=== PATIENT | male | born 1945 | race Caucasian/White ===

== ENCOUNTER → 2019-02-04 | Outpatient (CLI) | payer MEDICARE, OTHER ==
[~2019-02-04] MED LIST: ACET325 PO; ALPR.25; ALPR.25 PO; ALPR1 PO; ATOR10 PO; ATOR40TA PO; Acetaminophen325 M1 PO; Aldactone25 MG PO; BUSP5 PO; CARV6.25 PO; CEFD300 PO; CEFTIN PO; CLIN300 PO; CLOP75 PO; DIAZ2 PO; DOCU100 PO; FLUO10 PO; FURO20 PO; GABA300; GUAI600T33 PO; HYDACE5 PO; LEVFLO500 PO; LISI5 PO; METF500 PO; METH10 PO; METO25 PO; METO50 PO; MORP15ER PO; MORP30 PO; MORP30ER PO; MORPHINE SULFAT10 MG; Morphine Sulfat15 MG PO; OXYC15ER PO; SERT50; SERT50 PO; TORSE20 PO; WARF2.5 PO; WARF3 PO; XARELTO20 MG PO
== END | disposition home or self-care (01) ==
LOC: LAB SHORT 18:55 → LAB EV 18:55
DX: S81.801A Unspecified open wound, right lower leg, initial encounter (principal)
CPT/HCPCS: 87070; 87075; 87077; 87186; 87205

== ENCOUNTER 2019-02-09 17:21 | Inpatient (IN) | payer MEDICARE, OTHER ==
[~2019-02-09] VITALS: Ht 177.8 cm; Wt 121.9 kg
[~2019-02-09 17:21] MED LIST changes: -ALPR.25 PO; -Acetaminophen325 M1 PO; -BUSP5 PO; -CEFD300 PO; -CLIN300 PO; -CLOP75 PO
[2019-02-09 18:09] LABS: BASOPHILS ABSOLUTE AUTO 0.03 K/mm3 (0.00-0.23); BASOPHILS PERCENT AUTO 1 % (0-2); EOSINOPHILS ABSOLUTE AUTO 0.07 K/mm3 (0.00-0.68); EOSINOPHILS PERCENT AUTO 1 % (0-6); Hematocrit 45.4 % (37.0-53.0); Hemoglobin 14.4 g/dL (13.5-17.5); IMMATURE GRAN ABSOLUTE AUTO 0.04 K/mm3 (0.00-0.10); IMMATURE GRAN PERCENT AUTO 1 % (0-1); LYMPHOCYTES ABSOLUTE AUTO 0.53 K/mm3 (0.84-5.20); LYMPHOCYTES PERCENT AUTO 9 % (21-46); MONOCYTES ABSOLUTE AUTO 0.43 K/mm3 (0.16-1.47); MONOCYTES PERCENT AUTO 7 % (4-13); Mean Corpuscular HGB 30.1 pg (26.0-34.0); Mean Corpuscular HGB Conc 31.7 g/dL (31.5-36.5); Mean Corpuscular Volume 95 fL (80-100); Mean Platelet Volume 11.1 fL (9.1-12.4); NEUTROPHILS ABSOLUTE AUTO 4.83 K/mm3 (1.96-9.15); NEUTROPHILS PERCENT AUTO 81 % (41-73); Platelet Count 143 K/mm3 (150-400); RDW Coefficient Variation 15.7 % (11.7-14.2); RDW Standard Deviation 55.2 fL (35.1-46.3); Red Blood Cell Count 4.79 M/mm3 (4.30-5.90); White Blood Cell Count 5.93 K/mm3 (4.00-11.30)
[2019-02-09 18:47] LABS: Prothrombin Time Results 44.6 Sec (9.7-11.5)
[2019-02-09 18:53] LABS: International Normalized Ratio 4.86
[2019-02-09 19:13] LABS: Troponin I 0.028 ng/mL (0.000-0.040)
[2019-02-09 19:21] LABS: Albumin, Blood 3.4 g/dL (3.4-5.0); Albumin/Globulin Ratio 0.8 (0.8-1.8); Bilirubin, Total 0.3 mg/dL (0.1-1.0); Calcium, Blood 8.3 mg/dL (8.5-10.1); Potassium, Blood 5.2 mmol/L (3.5-5.5); Total Protein, Blood 7.4 g/dL (6.4-8.2)
[2019-02-09] MEDS ORDERED: BUSP5 PO (20:09)
[2019-02-09 20:28] LABS: Magnesium, Blood 2.8 mg/dL (1.6-2.4)
[2019-02-09 20:32] LABS: Thyroid Stimulating Hormone 1.49 uIU/mL (0.360-4.800)
[2019-02-09 20:51] LABS: Base Excess Venous -4.7 mmol/L; Bicarbonate Venous 19.5 mmol/L (24.0-30.0); PCO2 Venous 51.4 mmHg (38-42); PO2 Venous 38.3 mmHg (38-42); pH Blood Venous 7.25 (7.34-7.37)
[2019-02-09 21:23] LABS: Source, Urine Peds U Bag
[2019-02-09 21:26] LABS: Bilirubin, Urine Neg (Neg); Blood, Urine Neg (Neg); Glucose Qualitative, Urine Neg (Neg); Ketones, Urine Neg (Neg); Leukocyte Esterase, Urine Neg (Neg); Nitrite, Urine Neg (Neg); Protein, Urine Neg (Neg); Urobilinogen, Urine NORM (Normal)
[2019-02-09 21:29] LABS: Appearance, Urine Clear (Clear); Color, Urine Yellow (P-Yellow)
--- NOTE | 2019-02-10 04:44 | NUR ---
SHIFT SUMMARY: 73 Y/O OBESE MALE RESTED COMFORTABLY IN BED ALL SHIFT. PT DENIES PAIN OR NAUSEA. PTS PLACED ON CONTACT ISOLATION (PAST HX MRSA). PT BILATERAL LOWER EXTREMITIES ARE RED AND WARM TO TOUCH, NO OPEN WOUNDS NOTED. PT IS DECONDITIONED AND HAD MUCH TROUBLE STANDING AT BEDSIDE TO REMOVE CLOTHES UPON INITIAL ARRIVAL INTO ROOM. PT DENIES NAUSEA, C/O CHRONIC BACK PAIN 01/12 WITH MS CONTIN 30MG PO GIVEN. PTS BED LOW POSITION, CALL LIGHT AT SIDE.
[2019-02-10 05:41] LABS: Bun/Creatinine Ratio 27.7 (12.0-20.0); Calcium, Blood 7.9 mg/dL (8.5-10.1); Creatinine, Blood 1.73 mg/dL (0.60-1.20); Potassium, Blood 5.4 mmol/L (3.5-5.5)
[2019-02-10 05:52] LABS: Prothrombin Time Results 42.9 Sec (9.7-11.5)
[2019-02-10 05:55] LABS: International Normalized Ratio 4.65
--- NOTE | 2019-02-10 06:17 | NUR ---
02/09/19 2230 PT ADMITTED TO 359 PER CART FROM ER. PT ORIENTED TO ROOM.
--- NOTE | 2019-02-10 15:29 | NUR ---
Spiritual care visit conducted. Patient welcomes visit and immediately shares the spiritual/emotional distress. We talk about lul, how he views God in suffering and about what inspires and encourages him. I encourage self-care, reinforce helpful attitudes and practices and provide prayer. Patient responds well and shows signs of restored lul. Patient invites me back anytime I am available.
--- NOTE | 2019-02-10 17:17 | NUR ---
SHIFT SUMMARY: PT IS A/O X 4 THIS SHIFT WITH C/O ONGOING CHRONIC PAIN THAT IS ALLEVIATED WITH CURRENT PAIN MED ORDERS. PT HAS BEEN RESTING IN BED THIS SHIFT AND USES THE URINAL TO VOID. PT CALLS FOR HELP WITH CALL LIGHT WHEN NEEDED.
--- NOTE | 2019-02-11 03:26 | NUR ---
CARDIOLOGY CONSULT CALLED IN. ANSWERING SERVICE NOT AVAILABLE AT THIS TIME. WILL PASS ON TO DAY SHIFT RN.
--- NOTE | 2019-02-11 03:28 | NUR ---
SHIFT SUMMARY PATIENT HAD NO ACUTE CHANGES OBSERVED THIS SHIFT. AXO X3 AND ONE PERSON ASSIST TO BSC. PIV REMAINS INTACT. VSS/AFEBRILE. IV ABX INFUSED. DENIES PAIN, SOB, AND N/V. NS INFUSING AT 75 mL/HR. COOPERATIVE WITH CARE. CALL LIGHT IN REACH. BED IN LOWEST POSITION. WILL CONTINUE TO MONITOR UNTIL DAY SHIFT NURSE ASSUMES CARE.
[2019-02-11 05:11] LABS: International Normalized Ratio 3.44; Prothrombin Time Results 32.6 Sec (9.7-11.5)
[2019-02-11 05:13] LABS: Albumin, Blood 3.1 g/dL (3.4-5.0); Anion Gap 7 mmol/L (6-16); Blood Urea Nitrogen 33 mg/dL (8-24); Bun/Creatinine Ratio 24.8 (12.0-20.0); CO2, Blood 23 mmol/L (21-32); Calcium, Blood 8.3 mg/dL (8.5-10.1); Chloride, Blood 108 mmol/L (98-108); Creatinine, Blood 1.33 mg/dL (0.60-1.20); Glomerular Filtration Rate 56 (60-); Glucose, Blood 93 mg/dL (70-99); Phosphorus, Blood 2.8 mg/dL (2.5-4.9); Potassium, Blood 5.6 mmol/L (3.5-5.5); Sodium, Blood 138 mmol/L (136-145)
--- NOTE | 2019-02-11 06:37 | NUR ---
PATIENT OUT TO IMAGING VIA BED.
--- NOTE | 2019-02-11 10:07 | NUR ---
PT CALLED NURSE TO ROOM C/O "NOT FEELING WELL" PT STATES HE FEELS SLIGHTLY SOB AND NAUSEOUS. RT NOTIFIED AND BREATHIG TX INITIATED. V/S OBTAINED AND B/P LOW WITH ELEVATED PULSE. DR FIERRO NOTIFIED AND GAVE ORDERS TO STOP IV FLUIDS AND PAUSE IV ABO AND HE WOULD BE UP TO ROUND ON PT. PT IS A/O TO BASELINE AND SITTING UP IN BED.
--- NOTE | 2019-02-11 10:34 | NUR ---
PT IS NOW RESTING COMFORTABLY IN BED AND DENIES ANY SOB OR NAUSEA. DENIES ANY DIZZINESS. PT BED LINENS WERE CHANGED AND PT WAS REPOSITIONED TO SIT UP IN BED.
--- NOTE | 2019-02-11 11:27 | NUR ---
PT CALLED THIS NURSE TO ROOM TO REPORT THAT HE "FEELS WEIRD" PT REPORTS MILD SOB. BP WNL WITH ELEVATED PULSE. CBG WNL. DR FIERRO NOTIFIED AND GAVE VERBAL ORDER TO START PT ON TELE AND CONTINUE TO MONITOR. PT IS RESTING IN BED, NURSING WILL CONTINUE TO MONITOR.
--- NOTE | 2019-02-11 13:07 | NUR ---
THIS NURSE SPOKE WITH DR FIERRO WHO GAVE ORDERS TO RE-START CLEOCIN IV ABO TO GIVE THE REMAINING DOSE AND MONITOR PT, CALL MD IF ANY CHANGES WITH PT OCCUR.
--- NOTE | 2019-02-11 13:27 | NUR ---
IV ABO RE-STARTED PER MD ORDER. THIS NURSE AT BEDSIDE AND PT HAS NO C/O ADVERSE REACTION. BP WNL, A FEBRILE, PULSE REMAINS ELEVATED IN THE MID 120'S. WILL CONTINUE TO MONITOR.
--- NOTE | 2019-02-11 14:01 | NUR ---
NOTIFIED DR FIERRO OF ELEVTAED PULSE AND RECEIVED ORDER FOR IV METOPROLOL X 1 DOSE AND MONITOR V/S.
--- NOTE | 2019-02-11 15:41 | NUR ---
PT CALLED THIS NURSE TO REPORT FEELING MILDLY SOB AND LIGHTHEADED. PT CONTINUES TO HAVE A-FIB WITH PULSE 108-110. DR FIERRO NOTIFIED AND GAVE VERBAL ORDERS TO GIVE THE 21:00 DOSE OF METOPROLOL NOW AND RE-CHECK V/S AND CALL WITH UPDATE IN APPROX 1 HOUR. CHARGE NURSE MADE AWARE OF ORDERS/CHANGES.
--- NOTE | 2019-02-11 16:25 | NUR ---
PRESCHOOL DISABILITY TEACHER REPORTS THAT PT IS STILL IN A-FIB WITH A RATE OF 108. THIS WAS REPORTED TO DR FIERRO WHO WANTS TO CONTINUE TO MONITOR AND IF ANY CHANGES CALL TO NOTIFY HIM. PT AWARE AND OK WITH CURRENT TX PLAN.
--- NOTE | 2019-02-11 16:42 | NUR ---
SHIFT SUMMARY: PT HAS BEEN A/O X 4 THIS SHIFT WITH C/O PAIN X 1 AND STATES THAT MORNING PAIN PILL WAS EFFECTIVE. PT HAS HAD ON AND OFF SOB AND DIZZINESS THROUGHOUT THIS SHIFT AND ORDERS HAVE BEEN IMPLEMENTED PER DR FIERRO. BP HAS BEEN STABLE AND HR HAS BEEN A -FIB WITH MOST RECENTLY AT 108. NURSE CONTINUES TO ROUND ON PT FREQUENTLY WELL BOOK SHELVER WITH V/S BEING CHECKED OFTEN. FRIEND/NEIGHBOR IS AT BEDSIDE. PT IS NOW RESTING AND STATED HE WOULD CALL IF NEEDED. NURSING WILL CONTINUE TO MONITOR AND NOTIFY ONCOMING SHIFT.
--- NOTE | 2019-02-11 17:26 | NUR ---
PT BP CONTINUES TO BE STABLE AND PULSE IS COMING DOWN AT 96 BPM. PT IS RESTING IS BED.
--- NOTE | 2019-02-11 23:21 | NUR ---
HEARD CRASH NOISE COME FROM ROOM. WHEN I ENTERED THE ROOM I WITNESSED THE PATIENT ON THE FLOOR. PATIENT WAS SAT UP ON FLOOR WITH 2 OTHER [facility] THEN A SLING WAS PLACED UNDER PATIENT AND A HOER LIFT WAS USED TO GET THE PATIENT BACK IN BED. PATIENT DENIED HITTING HIS HEAD AND DENIED ANY PAIN RELATED TO THE FALL. I DID NOT VISUALIZ ANY INJURIES. PATIENT STATED THAT HIS LEG GOT "TANGLED" UP AND HE FELL ONTO THE BEDSIDE TABLE FIRST AND BROKE HIS FALL TO THE FLOOR. PHYSICIAN CALLED AND INFORMED OF PATIENT FALL. NO NEW ORDERS GIVEN. BED ALARM PLACED ON AND PATIENT EDUCATED ABOUT USING THE CALL LIGHT AND STAFF BEING PRESENT WHEN HE IS OUT OF BED MOVING FORWARD. PATIENT RESTATED THE USE OF THE CALL LIGHT AND AGREED TO CALL STAFF BEFORE GETTING OUT OF BED.
[2019-02-12 05:01] LABS: Albumin, Blood 2.9 g/dL (3.4-5.0); Anion Gap 7 mmol/L (6-16); Blood Urea Nitrogen 27 mg/dL (8-24); Bun/Creatinine Ratio 19.9 (12.0-20.0); CO2, Blood 21 mmol/L (21-32); Calcium, Blood 8.5 mg/dL (8.5-10.1); Chloride, Blood 106 mmol/L (98-108); Creatinine, Blood 1.36 mg/dL (0.60-1.20); Glomerular Filtration Rate 55 (60-); Glucose, Blood 91 mg/dL (70-99); Phosphorus, Blood 3.1 mg/dL (2.5-4.9); Potassium, Blood 4.9 mmol/L (3.5-5.5); Sodium, Blood 134 mmol/L (136-145)
[2019-02-12 05:06] LABS: International Normalized Ratio 2.42; Prothrombin Time Results 23.7 Sec (9.7-11.5)
--- NOTE | 2019-02-12 06:22 | NUR ---
SHIFT SUMMARY PATIENT HAD MECHANICAL FALL (SEE NURSE NOTE). PATIENT HEART RATE DOWN TO 95 AFIB. PATIENT AWAKE MOST OF NIGHT WITH COMPLAINTS OF BEING ANXIOUS. MEDICATIONS GIVEN. PATIENT VERBALIZED UNDERSTANDING OF CALLING STAFF BEFORE GETTING OUT OF BED AND DEMONSTRATED UNDERSTANDING BY CALLING STAFF THE REST OF TH NIGHT. VSS. WILL CONTINUE TO MONITOR
--- NOTE | 2019-02-12 16:55 | NUR ---
SHIFT SUMMARY: PT A/O X 4 THIS SHIFT AND TIRED THIS AM STATING HE DIDNT SLEEP WELL. AFTER RESTING UNTIL BREAKFAST, PT REQUESTED TO BE REPOSITIONED AND A RECLINER CHAIR WAS BROUGHT IN AND PT WAS ASSISTED TO SIT IN RECLINER. FEET WERE ELEVTAED IN THE CHAIR AND UP ON PILLOWS REQUESTED BY LOOM REPAIRER. PT STATES HE FEELS MUCH BETTER TODAY. LOOM REPAIRER STATED HE ADJUSTED DOSE ON LOPRESSOR AND IT WAS GIVEN ORDERED AND V/S HAVE BEEN WNL WITH HEART RHYTHM STILL IN A - FIB BUT PT DENIES SYPMTOMS TODAY. PT HAS BEEN RESTING ON AND OFF IN [employer]. PT WORKED WITH ALL TH[facility] TODAY AND OT IS RECOMMNEDING SNF AFTER HIS STAY AT [facility]. PT IS RESTING IN HIS CHAIR AND ABLE TO MAKE HIS NEEDS KNOWN.
[2019-02-13 05:10] LABS: International Normalized Ratio 2.1; Prothrombin Time Results 20.8 Sec (9.7-11.5)
[2019-02-13 05:16] LABS: Albumin, Blood 3.1 g/dL (3.4-5.0); Anion Gap 5 mmol/L (6-16); Blood Urea Nitrogen 30 mg/dL (8-24); Bun/Creatinine Ratio 22.2 (12.0-20.0); CO2, Blood 24 mmol/L (21-32); Calcium, Blood 8.5 mg/dL (8.5-10.1); Chloride, Blood 105 mmol/L (98-108); Creatinine, Blood 1.35 mg/dL (0.60-1.20); Glomerular Filtration Rate 55 (60-); Glucose, Blood 92 mg/dL (70-99); Phosphorus, Blood 3.3 mg/dL (2.5-4.9); Potassium, Blood 5.1 mmol/L (3.5-5.5); Sodium, Blood 134 mmol/L (136-145)
--- NOTE | 2019-02-13 07:14 | NUR ---
SHIFT SUMMARY PT IS A 73 Y/O MALE, ADMITTED FOR AN JULIET WHICH HAS SINCE BEEN RESOLVED. HE IS A 1PA TO THE BS. PT DENIED ANY COMPLAINTS OF PAIN, NAUSEA OR SOB. PER THE COMMUNICATIONS SYSTEMS ENGINEER, THE PT REMAINED IN AFIB, THOUGH HIS RATE WAS CONTROLLED IN THE 70-80S. VITALS REMAINED STABLE. NO OTHER ACUTE CHANGES IN PT CONDITION NOTED. REPORT GIVEN TO ONCOMING RN.
--- NOTE | 2019-02-13 09:00 | NUR ---
PT PLEASANT COOP A.O. SOME GENERALIZE PN, 4 OF 10, WOULD LIKE TO BE AT /. H/R IS IRREGLAR, NO MURMER NOTED. EGG PASTEURIZER STRONG. IS [place]. NEED TO LOOK AT PT WHEN TALK. LUNGS CLEAR, DIM IN BASES. ON R/A. BT XR LAST BM WAS YEST. NORMAL. VOIDS PER 1 ASST AT BSC. BED IN LOW POSITION, ACLL LITE IN REACH, CALLS APPROP
--- NOTE | 2019-02-13 10:29 | NUR ---
PT STATES SOME ANX. FEELS OTHERWISE OKAY, MED PER EMAR.
--- NOTE | 2019-02-13 14:22 | NUR ---
PT STATES FEELS "YUCKY", TELE AFIB AT 77, VSS. 111/74. XANAX GIVEN THIS AM. PT NERVOUS ABOUT HOUR BEING FORCLOSED ON. DAUGHTER TRYING TO HANDLE BEST CAN.
[2019-02-13] MEDS ORDERED: ALPR.25 PO (15:15)
[2019-02-13] MEDS ORDERED: Acetaminophen325 M1 PO (15:15)
[2019-02-13] MEDS ORDERED: CLIN300 PO (15:15)
[2019-02-13] MEDS ORDERED: CEFD300 PO (15:15)
[2019-02-13] MEDS ORDERED: CLOP75 PO (15:15)
--- NOTE | 2019-02-13 16:04 | NUR ---
PT AND FRIEND STATE PT HAD HALLUCINATION OF BLACK CUP AT EDGE OF COUNTER, REACHED FOR IT AND IT NOT THERE. ALSO TOLD DR HERNANDEZ FELT SOMEWHAT "OFF". VSS, TELE REMAINS AFIB . NO EVENTS. CALLED JOSE BOYERAY WITH D.C. NO NEW ORDERS.
--- NOTE | 2019-02-13 16:08 | NUR ---
CALLED REPORT TO BERTRAM. WAS HUNG UP ON . CALLED BACK RE[PORT TO [facility]. TRADE MANAGER.
--- NOTE | 2019-02-13 16:25 | NUR ---
PT IV PULLED INTACT FOR D/C. TELE REMOVED. CALLED REPORT TO BERTRAM . PENDING TRANSPORT. [id number]
--- NOTE | 2019-02-13 17:22 | NUR ---
PT OUT DOOR AT 1722 WITH [facility].
== END 2019-02-13 17:23 | DRG 682 ==
LOC: ER 17:21 → MEDS 21:00 → ER 21:00 → MEDS 21:45 → ER 22:14 → MEDS 22:37 → ENPENDDIS 02-13 15:17 → MEDS 02-13 17:23
PROVIDERS: Emergency Medicine; Internal Medicine Endocrinology, Diabetes & Metabolism; Nurse Practitioner Acute Care; ADMIT Internal Medicine
DX: N17.9 Acute kidney failure, unspecified (principal); J18.1 Lobar pneumonia, unspecified organism; I13.0 Hypertensive heart and chronic kidney disease with heart failure and stage 1 through stage 4 chronic kidney disease, or unspecified chronic kidney disease; L03.116 Cellulitis of left lower limb; L03.115 Cellulitis of right lower limb; E87.2 Acidosis; I50.22 Chronic systolic (congestive) heart failure; N18.3 Chronic kidney disease, stage 3 (moderate); J44.9 Chronic obstructive pulmonary disease, unspecified; Z86.718 Personal history of other venous thrombosis and embolism; E87.5 Hyperkalemia; E83.51 Hypocalcemia; I48.0 Paroxysmal atrial fibrillation; I95.9 Hypotension, unspecified; I27.20 Pulmonary hypertension, unspecified; I34.0 Nonrheumatic mitral (valve) insufficiency; I73.9 Peripheral vascular disease, unspecified; Z98.84 Bariatric surgery status; Z79.01 Long term (current) use of anticoagulants; E78.5 Hyperlipidemia, unspecified; F17.210 Nicotine dependence, cigarettes, uncomplicated; Z99.3 Dependence on wheelchair; E86.0 Dehydration; F41.1 Generalized anxiety disorder; F32.9 Major depressive disorder, single episode, unspecified; R79.1 Abnormal coagulation profile; E55.9 Vitamin D deficiency, unspecified
CPT/HCPCS: 36415; 71046; 80048; 80053; 80069; 81003; 82306; 82330; 82803; 82947; 83735; 83880; 84100; 84145; 84443; 84484; 85025; 85610; 85651; 85730; 86140; 87081; 93005; 93010; 94640; 94760; 96361; 96365; 96366; 96367; 97162; 97166; 97530; 97535; 99285-25; J0696; J1940; J3370; J7030; J7040; J7050

== ENCOUNTER 2019-07-01 09:45 | Day surgery (SDC) | payer MEDICARE, OTHER ==
[~2019-07-01] VITALS: Ht 177.8 cm; Wt 114.0 kg
[~2019-07-01 09:45] MED LIST changes: +ALPR.25 PO; +Acetaminophen325 M1 PO; +BUSP5 PO; +CEFD300 PO; +CLIN300 PO; +CLOP75 PO
--- NOTE | 2019-07-01 16:44 | NUR ---
DISCHARGE PT REMAINED A&OX3 AND STATED LITTLE PAIN IN GROIN SITE AREA-READJUSTING HELPED EACH TIME. IV DC'D WITH TIP IN TACT. L GROIN SITE CDI-NO HEMATOMA NOTED. PT'S ADJUNCT LECTURER HELPED HIM DRESS. PT ABLE TO PIVOT TO WHEELCHAIR INDEPENDANTLY. DISCHARGE EDUCAITON GIVEN TO PT AND CAREGIVER. PT AND CARGIVER VERBALLY STATED THE UNDERSTANDING OF THE DISCHARGE EDUCAITON AND DENIED ANY QUESTIONS AT THIS TIME. PT WHEELED OUT BY TRIXIE Benson RN.
== END 2019-07-01 17:03 | disposition home or self-care (01) ==
LOC: MHTC 09:45
DX: E11.51 Type 2 diabetes mellitus with diabetic peripheral angiopathy without gangrene (principal); E11.42 Type 2 diabetes mellitus with diabetic polyneuropathy; I12.9 Hypertensive chronic kidney disease with stage 1 through stage 4 chronic kidney disease, or unspecified chronic kidney disease; E11.22 Type 2 diabetes mellitus with diabetic chronic kidney disease; N18.9 Chronic kidney disease, unspecified; K21.9 Gastro-esophageal reflux disease without esophagitis; E78.5 Hyperlipidemia, unspecified; F32.9 Major depressive disorder, single episode, unspecified; G89.29 Other chronic pain; M54.9 Dorsalgia, unspecified; M54.30 Sciatica, unspecified side; F17.210 Nicotine dependence, cigarettes, uncomplicated; J44.9 Chronic obstructive pulmonary disease, unspecified; M17.0 Bilateral primary osteoarthritis of knee; E66.01 Morbid (severe) obesity due to excess calories; Z68.36 Body mass index [BMI] 36.0-36.9, adult; Z79.01 Long term (current) use of anticoagulants; Z79.899 Other long term (current) drug therapy; Z79.02 Long term (current) use of antithrombotics/antiplatelets
CPT/HCPCS: 37228; 75625; 75716; 75774; 85347; 99152; 99153; C1725; C1769; C1887; C1894; J1200; J1644; J2250; J2720; J3010; J7030; Q9967

== ENCOUNTER 2019-07-21 09:39 | Day surgery (SDC) | payer MEDICARE, OTHER ==
[~2019-07-21] VITALS: Ht 177.8 cm; Wt 114.0 kg
--- NOTE | 2019-07-21 14:23 | NUR ---
IVANA NEWBERRY, SEALANT MIXER TO RECOVERY ROOM FOR R FEMORAL SCAN. VSS. FEM STOP IN PLACE TO R FEMORAL SITE AFTER BASEBALL SIZED HEMATOMA NOTED/ HEMATOMA OUTLINED. L FEMORAL SITE REMAINS CLEAR.
--- NOTE | 2019-07-21 14:37 | NUR ---
PER U/S TECH, 10CM X 8CM & 2CM DEEP HEMATOMA TO R FEMORAL/ UPPER THIGH AREA. NO ACTIVE PSUEDO AT THIS TIME. VSS. CALL LIGHT WITHIN REACH. FEM STOP HAS BEEN REMOVED. NEW MATTHEW AND TEGADERM IN PLACE TO R FEMORAL.
--- NOTE | 2019-07-21 16:37 | NUR ---
REPORT GIVEN TO ANIBAL MCDONOUGH. [facility] SITES REVIEWED.
--- NOTE | 2019-07-21 16:40 | NUR ---
ASSUMED CARE OF PT. PT IS DOSING, BUT WAKES UP TO VERBAL STIMULI AND ANSWERS QUESTIONS APPROPRIATELY. PT DENIES PAIN, SOB OR NAUSEA. HR 90'S, B/P 161/100, 97% RA. R GROIN SITE HEMATOMA WITHIN MAPPING, SOFT, TEGADERM DRSG INTACT. L GROIN SITE NO SWELLING/HEMATOMA, TEGADERM DRSG INTACT. PT HAS 1+ BILATERAL DP PULSES.
--- NOTE | 2019-07-21 17:40 | NUR ---
PT STOOD AT THE BEDSIDE, SITES UNCHANGED. PT REQUIRED ASSISTANCE WITH DRESSING, SITES UNCHANGED-IV REMOVED X 2 CANNULA INTACT X 2.
--- NOTE | 2019-07-21 17:50 | NUR ---
PT AND FRIEND RECEIVED DISCHARGE INSTRUCTIONS, MED LIST AND 'AFTER CARE" INSTRUCTIONS. PT CONSENTED TO FRIEND OBSERVING SITES PRIOR TO DISCHARGE, INSTRUCTIONS ON S/S OF BLEEDING TO WATCH FOR AND CARE TO PROVIDE IF BLEEIDNG REOCCURED WERE DISCUSSED; PT AND FRIEND VERBALIZE GOOD UNDERSTANDING.
--- NOTE | 2019-07-21 17:55 | NUR ---
PT LEFT FACILITY VIA W/C WITH FRIEND, CONDITION STABLE.
== END 2019-07-21 17:55 | disposition home or self-care (01) ==
LOC: MHTC 09:39
DX: E11.51 Type 2 diabetes mellitus with diabetic peripheral angiopathy without gangrene (principal); E11.42 Type 2 diabetes mellitus with diabetic polyneuropathy; L97.919 Non-pressure chronic ulcer of unspecified part of right lower leg with unspecified severity; I70.239 Atherosclerosis of native arteries of right leg with ulceration of unspecified site; E78.5 Hyperlipidemia, unspecified; K21.9 Gastro-esophageal reflux disease without esophagitis; I10 Essential (primary) hypertension; E66.01 Morbid (severe) obesity due to excess calories; J44.9 Chronic obstructive pulmonary disease, unspecified; F17.210 Nicotine dependence, cigarettes, uncomplicated; Z79.02 Long term (current) use of antithrombotics/antiplatelets; Z79.01 Long term (current) use of anticoagulants; Z79.899 Other long term (current) drug therapy
CPT/HCPCS: 37228; 37229; 75710; 75716; 75774; 85347; 93926; 99152; 99153; C1714; C1725; C1760; C1769; C1887; C1894; J1200; J1644; J2250; J3010; J7030; Q9967

== ENCOUNTER 2019-09-24 08:11 | Observation (INO) | payer MEDICARE, OTHER ==
[~2019-09-24] VITALS: Ht 177.8 cm; Wt 118.6 kg
[2019-09-24 13:05] LABS: PCO2 Arterial 33.4 mmHg (35-45); PO2 Arterial 79.3 mmHg (80-100); pH Blood Arterial 7.41 (7.35-7.45)
--- NOTE | 2019-09-24 14:30 | NUR ---
Patient arrived from via hospital bed and monitor. He was very anxious and squirming around, with some confusion. He was on RA and sats mid 90%'s.ECHO is here and is francisco g to do ECHO. He has 20 ga IV LAC and dressing intact and siteWNL'flushed and SL'd. He just needs direction and follow commands with direct commands. He has antegrade site RLQ with clear opsite and minimal bruising and blood at site. He wants to stay laying on right side but placed illow on right and postioned him to left for ECHO. Doppler pulses to bilateral pedal. stated he had 250 ml of urine prior sylvia arrival.
--- NOTE | 2019-09-24 16:29 | NUR ---
Echocardiogram completed.
--- NOTE | 2019-09-24 16:30 | NUR ---
ECHO was finished and repositioned patient and he continues to follow directions well. He has been resting without proplems. Dr Dhaliwal by and spoke with him briefly and patient fell back to sleep. RLQ site remains unchanged and no signs of bleeding. VSS see EMR. He remains in controled rate A-fib/flutter. Continues to sat mid 90% on RA.
--- NOTE | 2019-09-24 19:23 | NUR ---
pATIENT AWAKENED TO USE URINAL AND WAS UNSUCCESSFUL AND GAVE CUMADIN AND MS CONTIN. HE ASKED FOR LEMONAIDE AND TOOK PILLS WITHOUT DIFFICULTY. GAVE REPORT IN ROOM TO GREG MCDONOUGH. PATIENT AWAKE AT THAT TIME.
[2019-09-25 01:28] LABS: International Normalized Ratio 1.14; Prothrombin Time Results 12.1 Sec (9.7-11.5)
--- NOTE | 2019-09-25 04:10 | NUR ---
SHIFT SUMMARY PATIENT HAS SLEPT THROUGH MOST OF NIGHT. NO S/S OF BLEEDING, RIGHT GROIN ACCESS SITE C/D/I, SCANT DRIED BLOOD PRESENT WAS AT BEGIN OF SHIFT. BLE PULSES HEARD VIA DOPPLER. PAIN WELL CONTROLLED WITH SCHEDULED MS CONTIN. VSS. WILL CONTINUE TO MONITOR.
--- NOTE | 2019-09-25 10:46 | NUR ---
SUMMARY Pt alert and oriented x 4. On room air. Atrial flutter per monitor, HR 70s-90s. When asked if he has a history of a-fib or a-flutter, pt states "yes". Pt wheelchair bound at baseline. Stands and transfers to chair with standby assist. Tolerates activity well. Right femoral artery access dressed with tegaderm CHG. Dried red drainage to site. Scant amount of brusing. Nontender on palpation. No hematoma noted. Color, sensation, pulses, capillary refill equal BLE. Distal pulses located with doppler bilateral. Pt education on arterial access. Pt verbalized understanding. Dr Cottrell in room at 1000. States pt is okay to go home. Pt dressed. IV access removed. Pt states his ride is on the way. Plan to escort pt to main entrance when ride arrives.
--- NOTE | 2019-09-25 11:26 | NUR ---
DEPARTURE Pt departed from unit at 1100 via wheelchair accompanied by this RN and pt's family memeber. Escorted into personal vehicle.
== END 2019-09-25 11:00 | disposition home or self-care (01) ==
LOC: MHTC 08:11 → ICUW 13:11 → MHTC 13:11 → ICUW 13:17
PROVIDERS: ADMIT Radiology Diagnostic Radiology
PROC: 047P3ZZ Dilation of Right Anterior Tibial Artery, Percutaneous Approach (ICD-10-PCS; principal; 2019-09-25)
DX: I70.211 Atherosclerosis of native arteries of extremities with intermittent claudication, right leg (principal); E11.42 Type 2 diabetes mellitus with diabetic polyneuropathy; E11.51 Type 2 diabetes mellitus with diabetic peripheral angiopathy without gangrene; I10 Essential (primary) hypertension; K21.9 Gastro-esophageal reflux disease without esophagitis; J44.9 Chronic obstructive pulmonary disease, unspecified; E78.5 Hyperlipidemia, unspecified; F17.210 Nicotine dependence, cigarettes, uncomplicated; E66.9 Obesity, unspecified; Z68.37 Body mass index [BMI] 37.0-37.9, adult; I48.91 Unspecified atrial fibrillation; Z79.899 Other long term (current) drug therapy; Z79.02 Long term (current) use of antithrombotics/antiplatelets; Z79.01 Long term (current) use of anticoagulants
CPT/HCPCS: 36415; 36600; 37228; 75710; 75774; 76937; 82803; 84484; 85347; 85610; 90686; 93005; 93010; 93306; 99152; 99153; A9270-GY; C1725; C1769; C1887; C1894; G0008; G0378; J1200; J1644; J2060; J2250; J2270; J2310; J3010; J7030; Q9967

== ENCOUNTER → 2019-10-26 | Outpatient (CLI) | payer MEDICARE, OTHER ==
[2019-10-26 18:37] LABS: BASOPHILS ABSOLUTE AUTO 0.03 K/mm3 (0.00-0.23); BASOPHILS PERCENT AUTO 1 % (0-2); EOSINOPHILS ABSOLUTE AUTO 0.08 K/mm3 (0.00-0.68); EOSINOPHILS PERCENT AUTO 2 % (0-6); Hematocrit 45.4 % (37.0-53.0); Hemoglobin 14.1 g/dL (13.5-17.5); IMMATURE GRAN ABSOLUTE AUTO 0.03 K/mm3 (0.00-0.10); IMMATURE GRAN PERCENT AUTO 1 % (0-1); LYMPHOCYTES ABSOLUTE AUTO 0.51 K/mm3 (0.84-5.20); LYMPHOCYTES PERCENT AUTO 9 % (21-46); MONOCYTES ABSOLUTE AUTO 0.44 K/mm3 (0.16-1.47); MONOCYTES PERCENT AUTO 8 % (4-13); Mean Corpuscular HGB 28.2 pg (26.0-34.0); Mean Corpuscular HGB Conc 31.1 g/dL (31.5-36.5); Mean Corpuscular Volume 91 fL (80-100); Mean Platelet Volume 10.5 fL (9.1-12.4); NEUTROPHILS ABSOLUTE AUTO 4.37 K/mm3 (1.96-9.15); NEUTROPHILS PERCENT AUTO 80 % (41-73); Platelet Count 173 K/mm3 (150-400); RDW Standard Deviation 59.1 fL (35.1-46.3); White Blood Cell Count 5.46 K/mm3 (4.00-11.30)
[2019-10-26 18:48] LABS: Albumin, Blood 3.1 g/dL (3.4-5.0); Albumin/Globulin Ratio 0.6 (0.8-1.8); Bilirubin, Total 0.8 mg/dL (0.1-1.0); Bun/Creatinine Ratio 22.1 (12.0-20.0); Calcium, Blood 8.3 mg/dL (8.5-10.1); Creatinine, Blood 1.22 mg/dL (0.60-1.20); Globulin, Blood 4.8 g/dL (2.2-4.0); Potassium, Blood 4.5 mmol/L (3.5-5.5); Total Protein, Blood 7.9 g/dL (6.4-8.2); Troponin I 0.017 ng/mL (0.000-0.040)
[2019-10-26 19:06] LABS: International Normalized Ratio 2.41; Prothrombin Time Results 24.5 Sec (9.7-11.5)
== END | disposition home or self-care (01) ==
LOC: LAB EV 18:28 → LAB SHORT 18:28
PROVIDERS: Physician Assistant
DX: Z79.01 Long term (current) use of anticoagulants (principal); Z51.81 Encounter for therapeutic drug level monitoring; R06.00 Dyspnea, unspecified
CPT/HCPCS: 80053; 83880; 84484; 85025; 85610

== ENCOUNTER 2020-05-31 15:57 | Inpatient (IN) | payer MEDICARE ==
[~2020-05-31] VITALS: Ht 177.8 cm; Wt 127.3 kg
[~2020-05-31 15:57] MED LIST changes: -WARF2.5 PO
[2020-05-31 16:52] LABS: BASOPHILS ABSOLUTE AUTO 0.03 K/mm3 (0.00-0.23); BASOPHILS PERCENT AUTO 1 % (0-2); EOSINOPHILS ABSOLUTE AUTO 0.02 K/mm3 (0.00-0.68); EOSINOPHILS PERCENT AUTO 0 % (0-6); Hematocrit 51.2 % (37.0-53.0); Hemoglobin 15.6 g/dL (13.5-17.5); IMMATURE GRAN ABSOLUTE AUTO 0.02 K/mm3 (0.00-0.10); IMMATURE GRAN PERCENT AUTO 0 % (0-1); LYMPHOCYTES ABSOLUTE AUTO 0.58 K/mm3 (0.84-5.20); LYMPHOCYTES PERCENT AUTO 9 % (21-46); MONOCYTES PERCENT AUTO 6 % (4-13); Mean Corpuscular HGB 27.6 pg (26.0-34.0); Mean Corpuscular HGB Conc 30.5 g/dL (31.5-36.5); Mean Corpuscular Volume 91 fL (80-100); Mean Platelet Volume 10.3 fL (9.1-12.4); NEUTROPHILS PERCENT AUTO 84 % (41-73); Platelet Count 217 K/mm3 (150-400); RDW Coefficient Variation 15.9 % (11.7-14.2); RDW Standard Deviation 53.5 fL (35.1-46.3); Red Blood Cell Count 5.65 M/mm3 (4.30-5.90); White Blood Cell Count 6.55 K/mm3 (4.00-11.30)
[2020-05-31 16:57] LABS: International Normalized Ratio 2.16; Prothrombin Time Results 22.1 Sec (9.7-11.5)
[2020-05-31 17:13] LABS: Alanine Aminotransfer (ALT/SGP 17 U/L (12-78); Albumin, Blood 3.9 g/dL (3.4-5.0); Albumin/Globulin Ratio 0.8 (0.8-1.8); Alk Phos 164 U/L (50-136); Anion Gap 7 mmol/L (6-16); Aspartate Aminotrans (AST/SGOT 24 U/L (12-37); Bilirubin, Total 1.7 mg/dL (0.1-1.0); Blood Urea Nitrogen 20 mg/dL (8-24); Bun/Creatinine Ratio 21.7 (12.0-20.0); CO2, Blood 27 mmol/L (21-32); Calcium, Blood 9.2 mg/dL (8.5-10.1); Chloride, Blood 107 mmol/L (98-108); Creatinine, Blood 0.92 mg/dL (0.60-1.20); Glomerular Filtration Rate >60 (60-); Glucose, Blood 137 mg/dL (70-99); Potassium, Blood 3.7 mmol/L (3.5-5.5); Sodium, Blood 141 mmol/L (136-145); Total Protein, Blood 8.9 g/dL (6.4-8.2)
[2020-05-31 20:30] LABS: Appearance, Urine Clear (Clear); Bilirubin, Urine Neg (Neg); Blood, Urine 1+ (Neg); Color, Urine Yellow (P-Yellow); Glucose Qualitative, Urine Neg (Neg); Ketones, Urine Neg (Neg); Leukocyte Esterase, Urine Neg (Neg); Nitrite, Urine Neg (Neg); Protein, Urine 2+ (Neg); Specific Gravity, Urine 1.015 (1.003-1.022); Urobilinogen, Urine 2+ (Normal)
[2020-05-31 20:39] LABS: Amorphous Light (0-Heavy); Bacteria Mod /hpf; Squamous Epithelial Cells Rare /hpf (Few); White Blood Cells, Urine 0-2 /hpf (0-5)
[2020-05-31 20:40] LABS: Hyaline Casts 0-2 /lpf (0-2); Mucus Light (0-Heavy)
[2020-05-31 20:47] LABS: U Amphetamine Screen Not Detected; U Barbituate Screen Not Detected; U Benzodiazapine Screen DETECTED; U Buprenorphine Screen Not Detected; U Cannabinoids Screen Not Detected; U Cocaine Screen Not Detected; U Methadone Screen Not Detected; U Methamphetamine Screen Not Detected; U Opiates Screen DETECTED; U Oxycodone Screen Not Detected; U Phencyclidine Screen Not Detected; U Propoxyphene Screen Not Detected
--- NOTE | 2020-06-01 04:38 | NUR ---
SHIFT SUMMARY PT WAS NEW ER ADMIT THIS SHIFT (2209), NO ACUTE CHANGES SINCE ASSUMING CARE, MEDICATED 1X FOR CHRONIC BACK PAIN, NO OTHER C/O ANY KIND, A&O, 1 ASSIST TO BSC (SOB W/ACTIVITY), SLEEPING AT THIS TIME, CALL LIGHT IN REACH, WILL CONT TO MONITOR UNTIL REPORT GIVEN TO DAY RN.
[2020-06-01 05:07] LABS: BASOPHILS ABSOLUTE AUTO 0.03 K/mm3 (0.00-0.23); BASOPHILS PERCENT AUTO 1 % (0-2); EOSINOPHILS ABSOLUTE AUTO 0.17 K/mm3 (0.00-0.68); EOSINOPHILS PERCENT AUTO 3 % (0-6); Hemoglobin 13.6 g/dL (13.5-17.5); IMMATURE GRAN ABSOLUTE AUTO 0.03 K/mm3 (0.00-0.10); IMMATURE GRAN PERCENT AUTO 1 % (0-1); LYMPHOCYTES ABSOLUTE AUTO 1.18 K/mm3 (0.84-5.20); LYMPHOCYTES PERCENT AUTO 20 % (21-46); MONOCYTES PERCENT AUTO 10 % (4-13); Mean Corpuscular HGB 28.5 pg (26.0-34.0); Mean Corpuscular HGB Conc 31.6 g/dL (31.5-36.5); Mean Corpuscular Volume 90 fL (80-100); Mean Platelet Volume 9.8 fL (9.1-12.4); NEUTROPHILS ABSOLUTE AUTO 3.83 K/mm3 (1.96-9.15); NEUTROPHILS PERCENT AUTO 66 % (41-73); Platelet Count 181 K/mm3 (150-400); RDW Standard Deviation 53.7 fL (35.1-46.3); Red Blood Cell Count 4.77 M/mm3 (4.30-5.90); White Blood Cell Count 5.84 K/mm3 (4.00-11.30)
[2020-06-01 05:29] LABS: International Normalized Ratio 2.32; Prothrombin Time Results 23.7 Sec (9.7-11.5)
[2020-06-01 05:33] LABS: Alanine Aminotransfer (ALT/SGP 15 U/L (12-78); Albumin/Globulin Ratio 0.8 (0.8-1.8); Alk Phos 122 U/L (50-136); Anion Gap 9 mmol/L (6-16); Aspartate Aminotrans (AST/SGOT 21 U/L (12-37); Bilirubin, Total 1.3 mg/dL (0.1-1.0); Blood Urea Nitrogen 18 mg/dL (8-24); Bun/Creatinine Ratio 21.8 (12.0-20.0); CO2, Blood 23 mmol/L (21-32); Calcium, Blood 8.5 mg/dL (8.5-10.1); Chloride, Blood 110 mmol/L (98-108); Creatinine, Blood 0.82 mg/dL (0.60-1.20); Globulin, Blood 3.9 g/dL (2.2-4.0); Glomerular Filtration Rate >60 (60-); Glucose, Blood 93 mg/dL (70-99); Potassium, Blood 3.3 mmol/L (3.5-5.5); Sodium, Blood 142 mmol/L (136-145)
[2020-06-01 05:37] LABS: Total Protein, Blood 6.9 g/dL (6.4-8.2)
[2020-06-01] MEDS ORDERED: ALBU90OI6 INH (10:32)
[2020-06-01] MEDS ORDERED: BUSP10 PO (10:36)
--- NOTE | 2020-06-01 10:40 | NUR ---
RECEIVED MED LIST FROM [facility] AND LIST UPDATED
--- NOTE | 2020-06-01 12:04 | NUR ---
ADVISED COULD NOT PALPATE PEDAL PULSES AND COULD NOT HEAR WITH DOPPLE. HAD CHANGE NURSE ALSO TRY AND SHE COULD NOT GET PEDAL PULSES. REQUEST RN TO LET KNOW. CAP REFILL<3 AND EXT WARM TO TOUCH.
--- NOTE | 2020-06-01 12:06 | NUR ---
ATTEMPT TO LET KNOW THAT I TRIED TO PALPATE PATIENTS PULSES AND MD DIAZ "WE'LL BE SEEING HIM SOON."
--- NOTE | 2020-06-01 12:24 | NUR ---
FULL EVAL DONE LATE DUE TO ULTRASOUND BEING IN ROOM.
--- NOTE | 2020-06-01 13:04 | NUR ---
DR.MCGLADES Juarez IN TO SEE PATIENT.
--- NOTE | 2020-06-01 19:00 | NUR ---
SHIFT SUMMARY- PT ALERT AND ORIENTED 1PA FOR TRANSFERS. PT ON TELE. PATCHES BECOME DISCONECTED FREQUENTLY. PT ON HEPARIN DRIP FOR PE, DVT R/O STUDY WAS DONE RESULTS IN CHART. PLAN IS FOR THE PT TO GO TO [facility] TO HAVE IVC PLACED TOMORROW PER DR ACEVEDO. NO NPO ORDERS AT THIS TIME. PT HAS NO PEDAL PALPABLE PEDAL PULSES, DR WEINBERG. PT SCRATCHES AT HIS LEGS OFTEN AND SCRATCHED A SCAB LOOSE EARLIER TODAY AND IT WAS BLEEDING, HOWEVER IT CLOTTED OFF QUICKLY. PT CURRENTLY ON IV HEPARIN DRIP. DR CALABRESE'D COUMADIN FOR PROCEDURE TOMORROW.
[2020-06-02 03:30] LABS: International Normalized Ratio 3.61; Prothrombin Time Results 35.9 Sec (9.7-11.5)
--- NOTE | 2020-06-02 04:10 | NUR ---
SHIFT SUMMARY: VSS. AFEB. AAOX4. ABLE TO COMMUNICATE NEEDS. AWAKE FOR MOST OF THE NIGHT. REPORTS RLE INTERMITTENT PAIN, MORESO WHEN BEARING WT ON THE R FOOT. B PEDAL PULSES ABSENT. CAP REFILL <3 SEC X4. BLE COOL TO TOUCH AND DUSKY APPEARANCE. MED FOR BLE AND LOW BACK PAIN X 1 EFFECTIVELY. HEPARIN GTT STOPPED PER PHARMACIST INSTRUCTIONS AT 0345. PT REMAINS NPO W/ SIPS AND CHIPS SINCE MIDNIGHT IN PREPARATION FOR IVC FILTER PLACEMENT TODAY. PER TELE MOLD CONSTRUCTION SUPERVISOR PT HR DROPPED TO THE HIGH 40'S WHILE SLEEPING, AVERAGED 58. PT DENIES ACUTE SOB OR DYSPNEA, OCC. NON-PRODUCTIVE COUGH, DENIES CHEST PAIN. WILL CONT TO MONITOR.
--- NOTE | 2020-06-02 12:45 | NUR ---
PATIENT LEAFT FOR IVC PLACEMENT. REPORT GIVEN TO POLITICAL GEOGRAPHER WHO WILL TAKE OVER THE PATIENT'S CARE.
--- NOTE | 2020-06-02 14:03 | NUR ---
ASSUMED PATIENT CARE. PATIENT ARRIVED FROM HEART CENTER, NO DISCHARGE NOTED AT R. JUGULAR SITE. PATIENT CONVERSING WITH NURSING STAFF, DENIES CHEST PAIN, WCTM.
--- NOTE | 2020-06-02 15:50 | NUR ---
RELINQUISHED PATIENT CARE. REPORT GIVEN TO SEGUN MCDONOUGH.
--- NOTE | 2020-06-02 16:35 | NUR ---
assumed care of pt. site looks good. v.s.stable. pt sleepy. call light in reach.
--- NOTE | 2020-06-02 18:13 | NUR ---
no further changes this shift. call light in reach.
[2020-06-03 04:44] LABS: BASOPHILS ABSOLUTE AUTO 0.04 K/mm3 (0.00-0.23); BASOPHILS PERCENT AUTO 1 % (0-2); EOSINOPHILS ABSOLUTE AUTO 0.17 K/mm3 (0.00-0.68); EOSINOPHILS PERCENT AUTO 3 % (0-6); Hematocrit 45.8 % (37.0-53.0); Hemoglobin 13.9 g/dL (13.5-17.5); IMMATURE GRAN ABSOLUTE AUTO 0.03 K/mm3 (0.00-0.10); IMMATURE GRAN PERCENT AUTO 1 % (0-1); LYMPHOCYTES ABSOLUTE AUTO 0.89 K/mm3 (0.84-5.20); LYMPHOCYTES PERCENT AUTO 17 % (21-46); MONOCYTES ABSOLUTE AUTO 0.63 K/mm3 (0.16-1.47); MONOCYTES PERCENT AUTO 12 % (4-13); Mean Corpuscular HGB 27.5 pg (26.0-34.0); Mean Corpuscular HGB Conc 30.3 g/dL (31.5-36.5); Mean Corpuscular Volume 91 fL (80-100); Mean Platelet Volume 11.1 fL (9.1-12.4); NEUTROPHILS ABSOLUTE AUTO 3.47 K/mm3 (1.96-9.15); NEUTROPHILS PERCENT AUTO 66 % (41-73); Platelet Count 192 K/mm3 (150-400); RDW Coefficient Variation 15.9 % (11.7-14.2); RDW Standard Deviation 53.4 fL (35.1-46.3); Red Blood Cell Count 5.05 M/mm3 (4.30-5.90); White Blood Cell Count 5.23 K/mm3 (4.00-11.30)
[2020-06-03 04:58] LABS: International Normalized Ratio 3.37; Prothrombin Time Results 33.7 Sec (9.7-11.5)
[2020-06-03 05:07] LABS: Alanine Aminotransfer (ALT/SGP 17 U/L (12-78); Albumin/Globulin Ratio 0.7 (0.8-1.8); Alk Phos 130 U/L (50-136); Anion Gap 6 mmol/L (6-16); Aspartate Aminotrans (AST/SGOT 21 U/L (12-37); Bilirubin, Total 0.9 mg/dL (0.1-1.0); Blood Urea Nitrogen 23 mg/dL (8-24); Bun/Creatinine Ratio 23.8 (12.0-20.0); CO2, Blood 26 mmol/L (21-32); Calcium, Blood 8.2 mg/dL (8.5-10.1); Chloride, Blood 108 mmol/L (98-108); Creatinine, Blood 0.97 mg/dL (0.60-1.20); Globulin, Blood 4.2 g/dL (2.2-4.0); Glomerular Filtration Rate >60 (60-); Glucose, Blood 129 mg/dL (70-99); Potassium, Blood 3.8 mmol/L (3.5-5.5); Sodium, Blood 140 mmol/L (136-145); Total Protein, Blood 7.2 g/dL (6.4-8.2)
--- NOTE | 2020-06-03 05:41 | NUR ---
shift summary pt rested comfortably through night ao room air - sats >90% tele - a fib voiding to bsc with sba incision site c/d/i c/o pain x1 vss call light within reach, bed in lowest position. will continue to monitor.
[2020-06-03] MEDS ORDERED: POTCHL20ER PO (13:18)
--- NOTE | 2020-06-03 15:10 | NUR ---
PT D/C TO HOME WITH A FRIEND VIA PRIVATE VEHICLE. D/C INSTRUCTIONS & EDUCATION PROVIDED. PT ENC TO F/U [facility] FOR ANY PROBLEMS OR CONCERNS. HH TO CONTACT PT TO SET UP CARE.
== END 2020-06-03 15:09 | disposition home health service (06) | DRG 176 ==
LOC: ER 15:57 → MEDS 22:06 → PCU 06-02 13:47
PROVIDERS: Emergency Medicine; Internal Medicine; ADMIT Internal Medicine
PROC: 06H03DZ Insertion of Intraluminal Device into Inferior Vena Cava, Percutaneous Approach (ICD-10-PCS; principal; 2020-06-02)
PROC: B5191ZZ Fluoroscopy of Inferior Vena Cava using Low Osmolar Contrast (ICD-10-PCS; 2020-06-02)
DX: I26.99 Other pulmonary embolism without acute cor pulmonale (principal); I50.22 Chronic systolic (congestive) heart failure; Z98.84 Bariatric surgery status; Z86.718 Personal history of other venous thrombosis and embolism; F17.210 Nicotine dependence, cigarettes, uncomplicated; I73.9 Peripheral vascular disease, unspecified; Z99.81 Dependence on supplemental oxygen; J44.9 Chronic obstructive pulmonary disease, unspecified; I48.0 Paroxysmal atrial fibrillation; Z79.01 Long term (current) use of anticoagulants; Z68.36 Body mass index [BMI] 36.0-36.9, adult; I11.0 Hypertensive heart disease with heart failure; E87.6 Hypokalemia; E11.51 Type 2 diabetes mellitus with diabetic peripheral angiopathy without gangrene; F41.8 Other specified anxiety disorders
CPT/HCPCS: 36415; 37191; 71045; 71260; 80053; 81001; 82947; 83880; 84484; 85025; 85610; 85730; 93005; 93010; 93970; 94640; 94760; 96374-59; 96375; 97110; 97116; 97162; 97165; 97535; 99152; 99153; 99285-25; A9270; A9270-GY; C1769; C1880; C1887; C1894; G0378; J1644; J2250; J2405; J3010; J7040; Q9967

== ENCOUNTER 2020-07-15 01:01 | Day surgery (SDC) | payer MEDICARE ==
[~2020-07-15 01:01] MED LIST changes: +ALBU90OI6 INH; +BUSP10 PO; +POTCHL20ER PO
== END 2020-07-15 23:13 | disposition home or self-care (01) ==
LOC: WOUND 01:01
DX: E11.621 Type 2 diabetes mellitus with foot ulcer (principal); E11.51 Type 2 diabetes mellitus with diabetic peripheral angiopathy without gangrene; I87.2 Venous insufficiency (chronic) (peripheral); K21.9 Gastro-esophageal reflux disease without esophagitis; G47.33 Obstructive sleep apnea (adult) (pediatric); E78.5 Hyperlipidemia, unspecified; I11.0 Hypertensive heart disease with heart failure; I50.9 Heart failure, unspecified; L97.512 Non-pressure chronic ulcer of other part of right foot with fat layer exposed; Z87.891 Personal history of nicotine dependence; Z79.899 Other long term (current) drug therapy; Z79.01 Long term (current) use of anticoagulants; Z79.02 Long term (current) use of antithrombotics/antiplatelets

== ENCOUNTER 2020-07-22 00:44 | Day surgery (SDC) | payer MEDICARE | END 2020-07-22 23:18 | disposition home or self-care (01) | LOC: WOUND 00:44 | DX: E11.621 Type 2 diabetes mellitus with foot ulcer (principal); E11.51 Type 2 diabetes mellitus with diabetic peripheral angiopathy without gangrene; I87.2 Venous insufficiency (chronic) (peripheral); E11.42 Type 2 diabetes mellitus with diabetic polyneuropathy; E78.5 Hyperlipidemia, unspecified; I11.0 Hypertensive heart disease with heart failure; I50.9 Heart failure, unspecified; G47.33 Obstructive sleep apnea (adult) (pediatric); L97.512 Non-pressure chronic ulcer of other part of right foot with fat layer exposed; Z79.899 Other long term (current) drug therapy; Z79.01 Long term (current) use of anticoagulants; Z79.02 Long term (current) use of antithrombotics/antiplatelets | CPT/HCPCS: G0463 ==

== ENCOUNTER 2020-08-04 00:53 | Day surgery (SDC) | payer MEDICARE | END 2020-08-04 23:20 | disposition home or self-care (01) | LOC: WOUND 00:53 | DX: E11.621 Type 2 diabetes mellitus with foot ulcer (principal); L97.519 Non-pressure chronic ulcer of other part of right foot with unspecified severity; E11.622 Type 2 diabetes mellitus with other skin ulcer; L97.819 Non-pressure chronic ulcer of other part of right lower leg with unspecified severity; E11.51 Type 2 diabetes mellitus with diabetic peripheral angiopathy without gangrene; Z79.01 Long term (current) use of anticoagulants; Z79.899 Other long term (current) drug therapy; Z79.02 Long term (current) use of antithrombotics/antiplatelets | CPT/HCPCS: G0463 ==

== ENCOUNTER 2020-08-12 01:50 | Day surgery (SDC) | payer MEDICARE ==
[~2020-08-12 01:50] MED LIST changes: -ALBU90OI6 INH; -ALPR.25 PO; -ATOR40TA PO; -BUSP5 PO; -CLOP75 PO; -FURO20 PO; -SERT50 PO
== END 2020-08-12 23:22 | disposition home or self-care (01) ==
LOC: WOUND 01:50
DX: E11.622 Type 2 diabetes mellitus with other skin ulcer (principal); E11.621 Type 2 diabetes mellitus with foot ulcer; L97.811 Non-pressure chronic ulcer of other part of right lower leg limited to breakdown of skin; L97.512 Non-pressure chronic ulcer of other part of right foot with fat layer exposed; E11.51 Type 2 diabetes mellitus with diabetic peripheral angiopathy without gangrene; E11.40 Type 2 diabetes mellitus with diabetic neuropathy, unspecified; G47.33 Obstructive sleep apnea (adult) (pediatric)
CPT/HCPCS: G0463

== ENCOUNTER 2020-08-26 21:58 | Emergency (ER) | payer MEDICARE ==
[~2020-08-26] VITALS: Ht 177.8 cm; Wt 104.8 kg
[2020-08-26 23:08] LABS: BASOPHILS ABSOLUTE AUTO 0.03 K/mm3 (0.00-0.23); BASOPHILS PERCENT AUTO 1 % (0-2); EOSINOPHILS ABSOLUTE AUTO 0.08 K/mm3 (0.00-0.68); EOSINOPHILS PERCENT AUTO 1 % (0-6); Hematocrit 50.2 % (37.0-53.0); Hemoglobin 15.1 g/dL (13.5-17.5); IMMATURE GRAN ABSOLUTE AUTO 0.03 K/mm3 (0.00-0.10); IMMATURE GRAN PERCENT AUTO 1 % (0-1); LYMPHOCYTES ABSOLUTE AUTO 0.93 K/mm3 (0.84-5.20); LYMPHOCYTES PERCENT AUTO 16 % (21-46); MONOCYTES ABSOLUTE AUTO 0.41 K/mm3 (0.16-1.47); MONOCYTES PERCENT AUTO 7 % (4-13); Mean Corpuscular HGB 26.8 pg (26.0-34.0); Mean Corpuscular HGB Conc 30.1 g/dL (31.5-36.5); Mean Corpuscular Volume 89 fL (80-100); Mean Platelet Volume 10.6 fL (9.1-12.4); NEUTROPHILS ABSOLUTE AUTO 4.47 K/mm3 (1.96-9.15); NEUTROPHILS PERCENT AUTO 75 % (41-73); Platelet Count 149 K/mm3 (150-400); RDW Coefficient Variation 17.7 % (11.7-14.2); Red Blood Cell Count 5.63 M/mm3 (4.30-5.90); White Blood Cell Count 5.95 K/mm3 (4.00-11.30)
[2020-08-26 23:24] LABS: International Normalized Ratio 1.55; Prothrombin Time Results 16.2 Sec (9.7-11.5)
[2020-08-26 23:28] LABS: Alanine Aminotransfer (ALT/SGP 36 U/L (12-78); Albumin, Blood 3.3 g/dL (3.4-5.0); Albumin/Globulin Ratio 0.7 (0.8-1.8); Alk Phos 175 U/L (50-136); Anion Gap 5 mmol/L (6-16); Aspartate Aminotrans (AST/SGOT 84 U/L (12-37); Bilirubin, Total 0.9 mg/dL (0.1-1.0); Blood Urea Nitrogen 19 mg/dL (8-24); Bun/Creatinine Ratio 24.3 (12.0-20.0); CO2, Blood 24 mmol/L (21-32); Calcium, Blood 8.3 mg/dL (8.5-10.1); Chloride, Blood 111 mmol/L (98-108); Creatinine, Blood 0.78 mg/dL (0.60-1.20); Globulin, Blood 4.8 g/dL (2.2-4.0); Glomerular Filtration Rate >60 (60-); Glucose, Blood 121 mg/dL (70-99); Sodium, Blood 140 mmol/L (136-145); Total Protein, Blood 8.1 g/dL (6.4-8.2); Troponin I <0.015 ng/mL (0.000-0.040)
== END 2020-08-27 00:10 | disposition home or self-care (01) ==
LOC: ER 21:58
PROVIDERS: Emergency Medicine
DX: R06.00 Dyspnea, unspecified (principal); I50.9 Heart failure, unspecified; I48.91 Unspecified atrial fibrillation; J44.9 Chronic obstructive pulmonary disease, unspecified; F17.210 Nicotine dependence, cigarettes, uncomplicated; Z79.01 Long term (current) use of anticoagulants; Z79.02 Long term (current) use of antithrombotics/antiplatelets; Z79.899 Other long term (current) drug therapy; Z86.718 Personal history of other venous thrombosis and embolism
CPT/HCPCS: 71045; 80053; 83880; 84484; 85025; 85610; 93005; 93010; 99285-25

== ENCOUNTER 2020-09-13 07:17 | Inpatient (IN) | payer MEDICARE ==
[~2020-09-13] VITALS: Ht 177.8 cm; Wt 118.6 kg
[2020-09-13 08:26] LABS: BASOPHILS ABSOLUTE AUTO 0.04 K/mm3 (0.00-0.23); BASOPHILS PERCENT AUTO 1 % (0-2); EOSINOPHILS ABSOLUTE AUTO 0.08 K/mm3 (0.00-0.68); EOSINOPHILS PERCENT AUTO 1 % (0-6); Hematocrit 46.5 % (37.0-53.0); Hemoglobin 14.4 g/dL (13.5-17.5); IMMATURE GRAN ABSOLUTE AUTO 0.02 K/mm3 (0.00-0.10); IMMATURE GRAN PERCENT AUTO 0 % (0-1); LYMPHOCYTES ABSOLUTE AUTO 0.94 K/mm3 (0.84-5.20); LYMPHOCYTES PERCENT AUTO 14 % (21-46); MONOCYTES ABSOLUTE AUTO 0.61 K/mm3 (0.16-1.47); MONOCYTES PERCENT AUTO 9 % (4-13); Mean Corpuscular HGB 27.1 pg (26.0-34.0); Mean Corpuscular Volume 87 fL (80-100); Mean Platelet Volume 10.6 fL (9.1-12.4); NEUTROPHILS ABSOLUTE AUTO 5.08 K/mm3 (1.96-9.15); NEUTROPHILS PERCENT AUTO 75 % (41-73); Platelet Count 157 K/mm3 (150-400); RDW Coefficient Variation 18.6 % (11.7-14.2); Red Blood Cell Count 5.32 M/mm3 (4.30-5.90); White Blood Cell Count 6.77 K/mm3 (4.00-11.30)
[2020-09-13 08:28] LABS: International Normalized Ratio 1.07; Prothrombin Time Results 11.4 Sec (9.7-11.5)
[2020-09-13 08:37] LABS: Alanine Aminotransfer (ALT/SGP 15 U/L (12-78); Albumin, Blood 3.3 g/dL (3.4-5.0); Albumin/Globulin Ratio 0.8 (0.8-1.8); Alk Phos 156 U/L (50-136); Anion Gap 5 mmol/L (6-16); Aspartate Aminotrans (AST/SGOT 14 U/L (12-37); Bilirubin, Total 1.5 mg/dL (0.1-1.0); Blood Urea Nitrogen 25 mg/dL (8-24); Bun/Creatinine Ratio 25.7 (12.0-20.0); CO2, Blood 26 mmol/L (21-32); Calcium, Blood 8.6 mg/dL (8.5-10.1); Chloride, Blood 107 mmol/L (98-108); Creatinine, Blood 0.97 mg/dL (0.60-1.20); Globulin, Blood 4.4 g/dL (2.2-4.0); Glomerular Filtration Rate >60 (60-); Glucose, Blood 125 mg/dL (70-99); Potassium, Blood 4.2 mmol/L (3.5-5.5); Sodium, Blood 138 mmol/L (136-145); Total Protein, Blood 7.7 g/dL (6.4-8.2)
[2020-09-13 12:40] LABS: BASOPHILS ABSOLUTE AUTO 0.05 K/mm3 (0.00-0.23); BASOPHILS PERCENT AUTO 1 % (0-2); EOSINOPHILS ABSOLUTE AUTO 0.04 K/mm3 (0.00-0.68); EOSINOPHILS PERCENT AUTO 1 % (0-6); Hematocrit 47.4 % (37.0-53.0); Hemoglobin 14.7 g/dL (13.5-17.5); IMMATURE GRAN ABSOLUTE AUTO 0.05 K/mm3 (0.00-0.10); IMMATURE GRAN PERCENT AUTO 1 % (0-1); LYMPHOCYTES ABSOLUTE AUTO 1.22 K/mm3 (0.84-5.20); LYMPHOCYTES PERCENT AUTO 15 % (21-46); MONOCYTES ABSOLUTE AUTO 0.39 K/mm3 (0.16-1.47); MONOCYTES PERCENT AUTO 5 % (4-13); Mean Corpuscular HGB 27.1 pg (26.0-34.0); Mean Corpuscular Volume 88 fL (80-100); Mean Platelet Volume 10.9 fL (9.1-12.4); NEUTROPHILS ABSOLUTE AUTO 6.45 K/mm3 (1.96-9.15); NEUTROPHILS PERCENT AUTO 79 % (41-73); Platelet Count 188 K/mm3 (150-400); RDW Coefficient Variation 18.7 % (11.7-14.2); RDW Standard Deviation 58.5 fL (35.1-46.3); Red Blood Cell Count 5.42 M/mm3 (4.30-5.90)
[2020-09-13 15:22] LABS: Source, Urine Catheter
[2020-09-13 15:24] LABS: Appearance, Urine Clear (Clear); Bilirubin, Urine Neg (Neg); Blood, Urine 1+ (Neg); Color, Urine Yellow (P-Yellow); Glucose Qualitative, Urine Neg (Neg); Ketones, Urine 2+ (Neg); Leukocyte Esterase, Urine Neg (Neg); Nitrite, Urine Neg (Neg); Protein, Urine 1+ (Neg); Specific Gravity, Urine 1.015 (1.003-1.022); Urobilinogen, Urine 1+ (Normal)
[2020-09-13 15:36] LABS: Amorphous Light (0-Heavy); White Blood Cells, Urine 0-2 /hpf (0-5)
[2020-09-13 15:37] LABS: Bacteria Few /hpf; Squamous Epithelial Cells Rare /hpf (Few)
--- NOTE | 2020-09-13 15:57 | NUR ---
PT ARRIVAL TO UNIT... PT ARRIVED ON UNIT FROM THE HEART CENTER AT 1345 S/P FAILED IVC FILTER REMOVAL , PT ARRIVED WITH A PERICARDIAL DRAIN IN PLACE WITH A GRAVITY BAG, CURRENT AMOUNT OF TIFFANIE RED BLOOD IN THE DRAINAGE BAG WAS 150MLS. PT IS ON A LEVOPHED GTT RUNNING AT 5MCG/MIN WITH MAPS >65. PT WAS ALSO ON AN AMIODERONE GTT RUNNING AT 1MCG/MIN PER DR. BRUNO'S ORDERS. PT HAD A 3 LUMEN CENTRAL LINE TO THE LEFT IJ AND A MATTHEW DRESSING TO THE RIGHT IJ WHICH HAD BEEN ACCESSED FOR THE PROCEDURE. PT IS SLEEPY BUT WAKES EASILY TO VERBAL STIMULI TO BE A&Ox4. THE PERICARDIAL DRAIN SITE IS C/D/I, HEART SOUNDS ARE MUFFLED AND IRREGULAR, PT'S RHYTHM IS SINUS W/ ABERRANT CONDUCTIONS AND OCC PVCs IN THE 70'S-80'S WITH OCC MOMENTS OF LOWS IN THE 40'S. PT'S BP HAS BEEN STABLE ON THE LEVOPHED AT 5MCG/MIN. PT'S PULSES ARE FAINT AND THREADY BLE AND BUE ARE PURPLE, COOL TO TOUCH BUT HAVE CAP REFILL LESS THAN 3 SECONDS. L/S ARE CLEAR AND DIM T/O, PT IS ON 2L NC WITH O2 SATS >90% RR EVEN AND UNLABORED IN THE 14-18 RR. BT PRESENT AND HYPERACTIVE, ABD IS LARGE, SOFT AND NONTENDER TO PALP. PT'S SKIN IS FRAGILE W/SCATTERED BRUSIES. IT WAS NOTED THE PT HAD AN OLD DIRTY DRESSING ON THE TOP OF HIS RIGHT FOOT, THIS WAS REMOVED, THERE WAS 2 SMALL OPEN AREAS TO THE TOP OF HIS RIGHT FOOT THAT LOOKED LIKE SMALL CUTS NO DISCHARGE WAS NOTED AT THE TIME. DR. BRUNO WAS AT THE BEDSIDE SHORTLY AFTER THE PT ARRIVED TO THE UNIT AND ORDERED COBRA TRANSFER TO [facility] IN [place]. PT WAS AGREEABLE TO THIS PLAN OF CARE. DR. BRUNO GAVE VERBAL ORDERS TO HAVE ATROPINE AND EPI IV PUSH AND EPI DRIP AT THE BEDSIDE IN CASE THE PT BECAME BRADYCARDIC. DR. BRUNO STATED HE WANTED THE ATROPINE GIVEN PIOR TO THE EPI TO PREVENT TACHYCARDIA WITH THE PT. DR. BRUNO ALSO STATED THAT HE WANTED THE LEVOPHED KEPT ON 5MCG/MIN THAT "I'M IN NO HURRY TO TITRATE THE LEVO QUICKLY." PT'S STEP DAUGHTER GARY WAS CALLED AND UPDATED ON THE SITUATION AND PLAN OF CARE. PT WAS TRANSFERED OUT VIA REACH AIR, A PAINTER WAS PLACED PRIOR TO PT LEAVING THE FACILITY. ALL OF PT'S BELONGINGS WERE SENT WITH THE PT EXCEPT HIS WHEELCHAIR. AT THE TIME OF HIS TRANSFER OUT THERE WAS 260MLS OF BLOOD NOTED IN THE PERICARDIAL DRAINAGE BAG.
== END 2020-09-13 15:15 | disposition short-term general hospital (02) | DRG 314 ==
LOC: MHTC 07:17 → ICUW 12:14 → MHTC 14:07 → ICUW 15:15
PROVIDERS: Radiology Diagnostic Radiology; ADMIT Internal Medicine Cardiovascular Disease
PROC: B5191ZZ Fluoroscopy of Inferior Vena Cava using Low Osmolar Contrast (ICD-10-PCS; principal; 2020-09-13)
PROC: 0W9D30Z Drainage of Pericardial Cavity with Drainage Device, Percutaneous Approach (ICD-10-PCS; 2020-09-13)
PROC: 5A2204Z Restoration of Cardiac Rhythm, Single (ICD-10-PCS; 2020-09-13)
DX: I31.3 Pericardial effusion (noninflammatory) (principal); I26.09 Other pulmonary embolism with acute cor pulmonale; Z68.41 Body mass index [BMI] 40.0-44.9, adult; I48.91 Unspecified atrial fibrillation; I95.9 Hypotension, unspecified; E66.9 Obesity, unspecified; K21.9 Gastro-esophageal reflux disease without esophagitis; E11.40 Type 2 diabetes mellitus with diabetic neuropathy, unspecified; I10 Essential (primary) hypertension; E78.5 Hyperlipidemia, unspecified; F32.9 Major depressive disorder, single episode, unspecified; E11.51 Type 2 diabetes mellitus with diabetic peripheral angiopathy without gangrene; F17.210 Nicotine dependence, cigarettes, uncomplicated; J44.9 Chronic obstructive pulmonary disease, unspecified; M54.9 Dorsalgia, unspecified; G89.29 Other chronic pain; Z79.899 Other long term (current) drug therapy; Z86.718 Personal history of other venous thrombosis and embolism; Z79.01 Long term (current) use of anticoagulants; Z79.02 Long term (current) use of antithrombotics/antiplatelets; Z79.891 Long term (current) use of opiate analgesic
CPT/HCPCS: 33016; 36556; 37193; 75825; 76937; 80053; 81001; 83735; 85025; 85610; 92960; 93005; 93010; 93308; 93566; 99152; 99153; C1751; C1769; C1773; C1887; C1894; J0282; J1644; J2250; J2405; J3010; J7030; J7040; J7060; Q9967

== ENCOUNTER 2020-09-23 07:59 | Inpatient (IN) | payer MEDICARE ==
[~2020-09-23] VITALS: Ht 175.3 cm; Wt 113.4 kg
[2020-09-23 09:11] LABS: BASOPHILS ABSOLUTE AUTO 0.04 K/mm3 (0.00-0.23); BASOPHILS PERCENT AUTO 0 % (0-2); EOSINOPHILS PERCENT AUTO 0 % (0-6); Hematocrit 52.3 % (37.0-53.0); Hemoglobin 15.5 g/dL (13.5-17.5); IMMATURE GRAN ABSOLUTE AUTO 0.34 K/mm3 (0.00-0.10); IMMATURE GRAN PERCENT AUTO 2 % (0-1); LYMPHOCYTES PERCENT AUTO 4 % (21-46); MONOCYTES ABSOLUTE AUTO 1.25 K/mm3 (0.16-1.47); MONOCYTES PERCENT AUTO 7 % (4-13); Mean Corpuscular HGB Conc 29.6 g/dL (31.5-36.5); Mean Corpuscular Volume 91 fL (80-100); Mean Platelet Volume 10.7 fL (9.1-12.4); NEUTROPHILS ABSOLUTE AUTO 15.13 K/mm3 (1.96-9.15); NEUTROPHILS PERCENT AUTO 87 % (41-73); NRBC ABSOLUTE 0.07 K/mm3 (0.00-0.02); NRBC Auto 0.4 /100 WBC (0.0-0.2); Platelet Count 163 K/mm3 (150-400); RDW Coefficient Variation 19.8 % (11.7-14.2); RDW Standard Deviation 61.9 fL (35.1-46.3); Red Blood Cell Count 5.74 M/mm3 (4.30-5.90); White Blood Cell Count 17.36 K/mm3 (4.00-11.30)
[2020-09-23 09:27] LABS: International Normalized Ratio 1.35; Prothrombin Time Results 14.2 Sec (9.7-11.5)
[2020-09-23 10:00] LABS: Albumin, Blood 3.2 g/dL (3.4-5.0); Albumin/Globulin Ratio 0.7 (0.8-1.8); Bilirubin, Total 2.9 mg/dL (0.1-1.0); Bun/Creatinine Ratio 17.6 (12.0-20.0); Calcium, Blood 8.3 mg/dL (8.5-10.1); Creatinine, Blood 3.01 mg/dL (0.60-1.20); Globulin, Blood 4.7 g/dL (2.2-4.0); Potassium, Blood 5.9 mmol/L (3.5-5.5); Total Protein, Blood 7.9 g/dL (6.4-8.2)
[2020-09-23 12:17] LABS: Influenza A, PCR NEGATIVE (NEGATIVE); Influenza B, PCR NEGATIVE (NEGATIVE); Resp Syncytial Virus, PCR NEGATIVE (NEGATIVE); SARS-Cov-2 (COVID-19) PCR, MMC NEGATIVE (NEGATIVE)
[2020-09-23] MEDS ORDERED: Morphine Sulfat15 MG PO (13:22)
[2020-09-23] MEDS ORDERED: MORP30ER PO (13:22)
[2020-09-23] MEDS ORDERED: ALPR.25 PO (13:22)
[2020-09-23] MEDS ORDERED: NYAMYC (13:22)
[2020-09-23] MEDS ORDERED: BUSPIRONE HCL7.5 M1 PO (13:23)
[2020-09-23] MEDS ORDERED: SERT50 PO (13:23)
[2020-09-23] MEDS ORDERED: ATOR40TA PO (13:23)
[2020-09-23] MEDS ORDERED: CLOP75 PO (13:24)
[2020-09-23] MEDS ORDERED: WARF2.5 (13:26)
[2020-09-23] MEDS ORDERED: FURO20 PO (13:26)
[2020-09-23] MEDS ORDERED: ALBU90OI6 INH (13:27)
--- NOTE | 2020-09-23 16:11 | NUR ---
Per Dr Gauthier patient here for comfort care. No discharge plan at this time. cp
--- NOTE | 2020-09-23 18:21 | NUR ---
called to ER to see patient. He is hypothermic, minimillaly responsive. He is mottled and purple and swollen in his lower extremities. Respirations were very coarse and labored. Pt eminent. placed on comfort care. Theraputic time with family saying good bye to him on phone. assisted family with with funneral planning. Family states he always wears a necklace and ring. NOt found in er or medical room or in belongings. only belongings were soiled underwear and tshirt. Advised family they will check with his caregiver.
== END 2020-09-23 16:00 | DRG 871 ==
LOC: ER 07:59 → MEDS 14:28 → EDBEDREQ 15:35 → EDBEDREQTM 15:35 → EDBEDREQSVC 15:35 → MEDS 16:00
PROVIDERS: Emergency Medicine; ADMIT Internal Medicine
DX: A41.9 Sepsis, unspecified organism (principal); J18.9 Pneumonia, unspecified organism; J96.01 Acute respiratory failure with hypoxia; N17.9 Acute kidney failure, unspecified; D68.9 Coagulation defect, unspecified; I48.21 Permanent atrial fibrillation; I13.0 Hypertensive heart and chronic kidney disease with heart failure and stage 1 through stage 4 chronic kidney disease, or unspecified chronic kidney disease; I50.22 Chronic systolic (congestive) heart failure; E87.2 Acidosis; R65.20 Severe sepsis without septic shock; Z51.5 Encounter for palliative care; E66.01 Morbid (severe) obesity due to excess calories; Z79.01 Long term (current) use of anticoagulants; I73.9 Peripheral vascular disease, unspecified; F17.210 Nicotine dependence, cigarettes, uncomplicated; R53.81 Other malaise; N18.9 Chronic kidney disease, unspecified; Z86.718 Personal history of other venous thrombosis and embolism; M54.5 Low back pain; E11.51 Type 2 diabetes mellitus with diabetic peripheral angiopathy without gangrene; Z79.4 Long term (current) use of insulin; J44.9 Chronic obstructive pulmonary disease, unspecified; Z66 Do not resuscitate; R74.01 Elevation of levels of liver transaminase levels
CPT/HCPCS: 0241U; 36415; 71045; 71275; 74175; 80053; 83605; 85025; 85610; 85730; 86850; 86900; 86901; 87040; 93005; 93010; 93308; 93321; 93925; 96365-59; 96375-59; 96376; 99285-25; A9270; J1170; J2060; J2270; J2405; J2543; J7030; Q9967